=== PATIENT | male | born 1995 | race Caucasian/White ===

== ENCOUNTER 2021-01-28 12:37 | Emergency (ER) | payer OTHER ==
[~2021-01-28] VITALS: Ht 172.7 cm; Wt 104.5 kg
[2021-01-28] MEDS ORDERED: ACETAMINOPHEN 500 MG TABLET PO ONE (13:15)
--- NOTE | 2021-01-28 13:32 | PHYS DOC ---
Past History Past Surgical History: No Surgical History (SAUL HAMILTON APRN) Alcohol Use: None (SAUL HAMILTON APRN) General Adult EDM: Chief Complaint: FLU SYMPTOM HPI: HPI: Patient is a 25-year-old male that presents today with difficulty breathing. Patient states that on January 20 he started experiencing body aches pain and cough, he assumes that he has Covid, he states he has known exposure to someone with Covid, he states that he has been quarantining since the . Patient states over the last day or so he says when he lie flat he feels like he cannot breathe, he says that he cannot lie flat and that is the reason he presented today. Patient denies any asthma or any lung conditions in the past. (SAUL HAMILTON APRN) Review of Systems: Review of Systems: Constitutional: Fever and chills Eyes: Denies change in visual acuity HENT: Denies nasal congestion or sore throat Respiratory: Cough shortness of breath Cardiovascular: Denies chest pain or edema GI: Denies abdominal pain, nausea, vomiting, bloody stools or diarrhea : Denies dysuria Musculoskeletal: Denies back pain or joint pain Integument: Denies rash Neurologic: Denies headache, focal weakness or sensory changes Endocrine: Denies polyuria or polydipsia Lymphatic: Denies swollen glands Psychiatric: Denies depression or anxiety (SAUL HAMILTON APRN) Current Medications: Current Meds: Current Medications Medications (Trade) Dose Ordered Sig/Marshal Start Time Stop Time Status Last Admin Dose Admin Acetaminophen (Tylenol) 1,000 mg 1X ONCE 01/28/21 13:15 01/28/21 13:16 UNV 01/28/21 13:15 1,000 MG (SAUL HAMILTON TUMBLING MACHINE OPERATOR) Physical Exam: PE: Constitutional: Well developed, well nourished, mild distress, non-toxic appearance. [] HENT: Normocephalic, atraumatic, bilateral external ears normal, oropharynx moist, no oral exudates, nose normal. [] Eyes: PERRLA, EOMI, conjunctiva normal, no discharge. [] Neck: Normal range of motion, no tenderness, supple, no stridor. [] Cardiovascular:Heart rate regular rhythm, no murmur [] Lungs & Thorax: Diminished breath sounds bilaterally, no wheezes rhonchi or crackles noted, no cough noted while in the room Abdomen: Bowel sounds normal, soft, no tenderness, no masses, no pulsatile masses. [] Skin: Warm, dry, no erythema, no rash. [] Back: No tenderness, no CVA tenderness. [] Extremities: No tenderness, no cyanosis, no clubbing, ROM intact, no edema. [] Neurologic: Alert and oriented X 3, normal motor function, normal sensory function, no focal deficits noted. [] Psychologic: Affect normal, judgement normal, mood normal. [] (SAUL HAMILTON APRN) Current Patient Data: Vital Signs: Vital Signs Date Time Temp Pulse Resp B/P (MAP) Pulse Ox O2 Delivery O2 Flow Rate FiO2 01/28/21 14:20 100.1 110 20 162/95 (117) 99 Room Air 01/28/21 12:57 100.5 124 22 165/101 (122) 98 Room Air Vital Signs Date Time Temp Pulse Resp B/P (MAP) Pulse Ox O2 Delivery O2 Flow Rate FiO2 01/28/21 12:57 100.5 4 22 165/101 (122) 98 Room Air Vital Signs Date Time Temp Pulse Resp B/P (MAP) Pulse Ox O2 Delivery O2 Flow Rate FiO2 01/28/21 12:57 100.5 4 22 165/101 (122) 98 Room Air (SAUL HAMILTON APRN) EKG: EKG: [] (SAUL HAMILTON APRN) Radiology/Procedures: Radiology/Procedures: REASON: SOA, cough, congestion PROCEDURE: CHEST AP ONLY EXAM: CHEST 1 VIEW History: Shortness of breath, cough COMPARISON: None available. TECHNIQUE: Single portable radiograph of the chest FINDINGS: Low lung volumes and technique accentuates heart size and pulmonary vascularity. Faint bilateral lung airspace opacity likely atelectasis or infiltrates The costophrenic sulci are clear and well demarcated. IMPRESSION: Faint bilateral lung airspace opacities likely atelectasis or infiltrates. Electronically signed by: Saulo Myles MD (01/28/2021 1:57 PM) [id number][] (SAUL HAMILTON APRN) Heart Score: C/O Chest Pain: N/A Risk Factors: Risk Factors: DM, Current or recent (<one month) smoker, HTN, HLP, family history of CAD, obesity. Risk Scores: Score 0 - 3: 2.5% MACE over next 6 weeks - Discharge Home Score 4 - 6: 20.3% MACE over next 6 weeks - Admit for Clinical Observation Score 7 - 10: 72.7% MACE over next 6 weeks - Early Invasive Strategies (SAUL HAMILTON APRN) Course & Med Decision Making: Course & Med Decision Making Pertinent Labs and Imaging studies reviewed. (See chart for details) 1425 spoke to patient regarding imaging results, states that the results were negative for any kind of infectious process at this time. Since patient is Covid positive, will have patient continue to quarantine for the next 5 to 6 days. Treat symptoms with [id number] remedies, patient was given steroids here in the emergency department to help with inflammation. Instructed patient to return to the emergency department if becoming increasingly short of breath, inability to catch breath, starts running a fever outside the 10 to 14-day window or any other concerns that he may have. Patient verbalized understanding of the instructions and is agreeable to going home and treating this on an outpatient basis (SAUL HAMILTON APRN) Course & Med Decision Making I was the Attending physician on the above date of service of this patient. This patient was evaluated, examined, treated, and dispositioned from the emergency department by the mid-level practitioner. Although I was working at the time , no assistance was requested. Electronically signed, Shazia Li DO (SHAZIA LI DO) Armando Disclaimer: Armando Disclaimer: This electronic medical record was generated, in whole or in part, using a voice recognition dictation system. (SAUL HAMILTON APRN) Departure Departure: Impression: Primary Impression: Dyspnea due to COVID-19 Disposition: HOME / SELF CARE / HOMELESS Condition: STABLE Referrals: PCP,LORENZO (PCP) Patient Instructions: Shortness of Breath Additional Instructions: You have been tested for or diagnosed with COVID-19. It is an infection caused by a new type of coronavirus. COVID-19 will cause cold-like or mild flu symptoms in most. It can cause more severe symptoms like problems breathing in some. There is no treatment for COVID-19. The body will clear the infection over time. Self-care will help to ease discomfort. Steps to Take: Self-Care Rest as needed. Healthy habits may help you feel better. Steps include: Choose healthy foods including fruits and vegetables. Drink water throughout the day. Get plenty of sleep each night. If you smoke, try to quit. It may ease breathing. Avoid alcohol. Keep Others Healthy The virus can spread to others. Droplets are released every time you sneeze or cough. The droplets can get into the mouth, nose, or eyes of people near you and lead to infection. To lower the chances of spreading COVID-19 to others: Stay at home until your doctor has said it is safe to leave. If you tested positive this will mean staying isolated until both of the following are true: At least 7 days have passed since the start of illness. You are free of fever for at least 72 hours without the use of medicine. During this time: - Avoid public areas, events, or transportation. Do not return to work or [facility] until your doctor has said it is safe to do so. - Call ahead if you need to go to a medical center. Let them know you may have COVID-19. It will help them guide you where to go. They may also ask you to wear a facemask when you come to the office. - If you call for emergency medical services, let them know you may have COVID- 19. While at home: - Try to avoid close contact with others. Stay about 6 feet away. - If possible, spend most of your time in a separate room from others. - Use a face mask if you will be in close contact with others such as sharing a room or vehicle. - Have someone wipe down common surfaces in the home. Use household veneer jointer helper every day on areas like doorknobs, counters, or sinks. - Cough or sneeze into a tissue. Throw the tissue away right after use. If a tissue is not available, cough or sneeze into your elbow. - Wash your hands often. Wash them after sneezing or coughing. Use soap and water and wash for at least 20 seconds. Alcohol based hand general cleaner can be used if soap and water is not available. - Do not prepare food for others. Avoid sharing personal items like forks, spoons, or toothbrushes. - Avoid close contact with pets while you are sick. There is no evidence of the virus passing to pets. This is a safety step until more is known about this virus. Isolation can be frustrating. Social interaction can help. Keep in touch with fr iends and family through phone and tech options. You can still interact with others in your home, just keep a safe distance of about 6 feet. Follow-up: Your doctors office will check in with you to see if there are any changes in your health. You may be asked to keep track of symptoms to share with them. They will also let you know when you are clear to be in public again. Problems to Look Out For: Contact your doctor if your recovery is not going as you expect. Get emergency care if you have problems such as: - Trouble breathing - Nonstop chest pain or pressure - Changes in awareness, confusion, or problems waking - Lips or face have bluish color - Worsening of symptoms If you think you have an emergency, call for emergency medical services right away. As taken from [facility] SAUL HAMILTON APRN Jan 28, 2021 13:32 SHAZIA LI DO Feb 02, 2021 07:01
--- NOTE | 2021-01-28 13:59 | RAD ---
EXAM: CHEST 1 VIEW History: Shortness of breath, cough COMPARISON: None available. TECHNIQUE: Single portable radiograph of the chest FINDINGS: Low lung volumes and technique accentuates heart size and pulmonary vascularity. Faint lary ateral lung airspace opacity likely atelectasis or infiltrates The costophrenic sulci are clear and w ell demarcated. IMPRESSION: Faint bilateral lung airspace opacities likely atelectasis or infiltrates. Electronically signed by: Saulo Myles MD (01/28/2021 1:57 PM) [id number]
[2021-01-28] MEDS ORDERED: DEXAMETHASONE SOD PHOS 10 MG/ML VIAL. PO ONE (14:00)
[2021-01-28 14:20] VITALS: BP 162/95
== END 2021-01-28 14:35 | disposition home or self-care (01) ==
LOC: ER 12:37
DX: U07.1 COVID-19 (principal); R06.00 Dyspnea, unspecified
CPT/HCPCS: 71045; 99283; J1100